=== PATIENT | male | born 1945 | race American Indian/Alaskan Native ===

== ENCOUNTER 2018-10-06 08:55 | Emergency (ER) | payer MEDICARE ==
[2018-10-06 08:58] VITALS: BMI 25.0
[2018-10-06 09:01] VITALS: BP 152/83; PULSE 86; RESP 17; O2SAT 97
[2018-10-06 09:26] VITALS: TEMP 97.6
[2018-10-06] MEDS ORDERED: Amoxicillin-Clav 875-125 mg Tab PO STA (09:28)
--- NOTE | 2018-10-06 09:35 | ED PDOC ---
HPI: Dental Pain/Injury Time Seen by Provider: 10/06/18 09:06 Chief Complaint (Nursing): Dental Pain Chief Complaint (Provider): Dental Pain History Per: Patient History/Exam Limitations: no limitations Onset/Duration Of Symptoms: Days (x1 day) Current Symptoms Are (Timing): Still Present Additional Complaint(s): Samuel Quiros is a 72 year old male with a past medical history of type II diabetes and hypertension, who presents to the emergency department complaining of right sided upper dental pain, onset last night. Patient states the pain keeps him from sleeping and he has not been able to eat today. He states he has not seen a dentist and does not have a local dentist. Patient further denies having a fever or any other medical complaints. PMD: Jeb Hernandez Past Medical History Reviewed: Historical Data, Nursing Documentation, Vital Signs Vital Signs: Last Vital Signs Temp 97.6 F 10/06/18 09:15 Pulse 86 10/06/18 08:58 Resp 17 10/06/18 08:58 BP 152/83 H 10/06/18 08:58 Pulse Ox 97 10/06/18 08:58 - Medical History PMH: Diabetes, HTN - Surgical History Surgical History: No Surg Hx - Family History Family History: States: Unknown Family Hx - Home Medications Home Medications: Ambulatory Orders Medication Instructions Recorded Amoxicillin/Clavulanate [Augmentin 1 tab PO BID #14 tab 10/06/18 875 MG-125 MG] Ibuprofen 600 mg PO Q6 #100 tablet 10/06/18 - Allergies Allergies/Adverse Reactions: Allergies Allergy/AdvReac Type Severity Reaction Status Date / Time No Known Allergies Allergy Verified 10/06/18 09:11 Review of Systems ROS Statement: Except As Marked, All Systems Reviewed And Found Negative Constitutional: Negative for: Fever ENT: Positive for: Other (right sided upper dental pain) Physical Exam - Reviewed Nursing Documentation Reviewed: Yes Vital Signs Reviewed: Yes - Physical Exam Appears: Positive for: Non-toxic, No Acute Distress Head Exam: Positive for: ATRAUMATIC, NORMOCEPHALIC Skin: Positive for: Normal Color, Warm, Dry Eye Exam: Positive for: Normal appearance ENT: Positive for: Other (upper right molars with numerous erosions; swelling of the gums and roof of the mouth; (-) fluctuance, bleeding). Negative for: Pharyngeal Erythema, Tonsillar Exudate, Tonsillar Swelling Cardiovascular/Chest: Positive for: Regular Rate, Rhythm. Negative for: Murmur Respiratory: Positive for: Normal Breath Sounds. Negative for: Respiratory Distress Neurologic/Psych: Positive for: Alert, Oriented - ECG O2 Sat by Pulse Oximetry: 97 (RA) Pulse Ox Interpretation: Normal Medical Decision Making Medical Decision Making: Time: 927 A/P: Work up for dental abscess and dental cavities on right molar. Augmentin and ibuprofen will be given in ED and will also be given a Rx for Augmentin and ibuprofen. Will be instructed to follow up with dental clinic. --Augmentin 1 tab PO --Motrin 800 mg PO Scribe Attestation: Documented by Nikolay Bolton, acting as a scribe for Lennie Issa MD. Provider Scribe Attestation: All medical record entries made by the Scribe were at my direction and personally dictated by me. I have reviewed the chart and agree that the record accurately reflects my personal performance of the history, physical exam, medical decision making, and the department course for this patient. I have also personally directed, reviewed, and agree with the discharge instructions and disposition. Disposition - Clinical Impression Clinical Impression: Dental caries - Disposition Disposition Time: 09:44 Additional Instructions: Follow up with a dentist within one week for full evaluation of teeth. Take Tylenol or Motrin for pain. Take antibiotics twice per day as prescribed. Return to the emergency department if symptoms worsen. [facility] [address] [place] [address] [place] [id number] Prescriptions: Amoxicillin/Clavulanate [Augmentin 875 MG-125 MG] 1 tab PO BID #14 tab Ibuprofen 600 mg PO Q6 #100 tablet Instructions: Tooth Decay, Adult (DC) Forms: [facility] (Uzbek) Print Language: BERMUDIAN
[2018-10-06] MEDS ORDERED: Amoxicillin-Clav 875-125 mg Tab PO ONE (09:36)
== END 2018-10-06 10:09 | disposition home or self-care (01) ==
LOC: H.ER 08:55
DX: K02.9 Dental caries, unspecified (principal); E11.9 Type 2 diabetes mellitus without complications; I10 Essential (primary) hypertension